=== PATIENT | male | born 1960 | race Caucasian/White ===

== ENCOUNTER 2023-09-12 09:05 | Emergency (ER) | payer OTHER, SELFPAY ==
[2023-09-12 09:07] VITALS: BP 170/98
[2023-09-12 10:31] VITALS: BMI 31.6
[2023-09-12] MEDS: TORADOL 15 MG IV (10:35)
[2023-09-12] MEDS: NSS 500 IV (10:36)
[2023-09-12 10:38] VITALS: BP 161/94
--- NOTE | 2023-09-12 10:38 | ED.GENMED ---
History of Present Illness
General
Chief Complaint: Abdominal Pain
Source: patient
Exam Limitations: none
Time Seen by Provider: 09/12/23 10:01
Travel History
Have you had any contact with someone who has COVID-19?: No
Do you have any symptoms of coronavirus? Fever > 100 degrees, chills, cough, shortness of breath, sore throat, loss of taste or smell, muscle aches, or headache?: No
History of Present Illness
History of Present Illness:
62-year-old male presents complaining of severe right mid abdominal and lower abdominal pain that radiates to the back comes in spasms. This has been intermittent since last month after he fell snowblowing's note. It worsened the last day or 2
with associated diaphoresis. 3 years ago he had hernia repair which included bilateral inguinal hernias and an umbilical hernia. Mesh was placed at the time. When he fell a month ago he felt a pop in the area. He denies any but is nauseous. He
is moving his bowels without any urinary symptoms. No other complaints at this time.
Past History
Past History
ED Past Medical History: HTN
ED Past Surgical History: Other (Left knee)
Social History
Tobacco: Non-smoker
Alcohol: Occasional
Drug: None
Personal:
Living: with family
Employment: Employed
Phy Exam
Physical Exam
Physical Exam:
General: Uncomfortable appearing male no acute respiratory distress
HEENT: Normocephalic atraumatic neck is supple
Heart: Regular rate and rhythm no murmurs lungs: Clear to auscultation bilaterally no wheezing
Abdomen is soft tender to the right inguinal region mildly to the right lateral abdomen. No testicular pain. No obvious bulging noted.
Vascular: The right inguinal region has 2+ femoral
Remedies: No cyanosis
Course
Orders/Labs/Results
Orders:
Orders
09/12/23 10:23
CT Abd/pelvis W Iv Cont Urgent
Comment:
Reason For Exam: right flankl/abdominal pain, history of hernia
09/12/23 10:24
0.9% Sodium Chloride 500 ml [Nss] 500 ml IV BOLUS
Ketorolac [Toradol] 15 mg IV NOW STA
09/12/23 10:36
Complete Blood Count/With Diff Urgent
Comprehensive Metabolic Panel Urgent
Lipase Urgent
09/12/23 13:30
Urinalysis Reflex To Culture Urgent
Date Specimen was Collected: 09/12/23
Time Specimen was Collected: 13:28
Urine Microscopic Reflex Cult Urgent
Urine Culture Urgent
ANABELLA Source: U
Specimen Description:
Date Specimen was Collected: 09/12/23
Time Specimen was Collected: 13:28
Abnormal Lab Results
09/12/23 09/12/23
10:36 13:30
MCH 31.5 H pg
(27.0-31.0)
Glucose 101 H mg/dl
(70-99)
Leukocyte Esterase Rfl 1+ A
(Negative)
09/12/23 10:36
09/12/23 10:36
Vital Signs
Initial and Last Documented VS:
Initial Vital Signs
Temp Pulse Resp BP Pulse Ox
98.3 F 77 18 170/98 98
09/12/23 09:07 09/12/23 09:07 09/12/23 09:07 09/12/23 09:07 09/12/23 09:07
Last Documented Vital Signs
Temp Pulse Resp BP Pulse Ox
98.3 F 65 20 156/96 96
09/12/23 09:07 09/12/23 12:52 09/12/23 12:52 09/12/23 12:52 09/12/23 12:52
MDM/Problems Addressed
Differential Diagnosis Includes:
Abdominal pain. Consider musculoskeletal versus renal colic versus recurrent hernia versus appendicitis
Will check labs. Will check urine. Order CT. Treat with Toradol and fluids
*Critical Care Note
Total Time (30-74mins, 75-104mins- exclusive of procedures): Not Applicable
Update Note
Update Note:
Workup here unremarkable. CT negative. Labs reviewed without significant finding. Urinalysis negative. Discussed findings with general surgery secondary to significant pain and similarity of pain to prior hernias. Will treat symptoms at home
and advise close follow-up. Surgery in agreement. No evidence of recurrence of hernia. Appendix was normal on CT. No skin rash to suggest shingles.
ED Attending Note
-
Portions of this chart may have been created with voice recognition software.� Occasional wrong word or��sound alike� substitutions may have occurred due to the inherent limitations of voice recognition software.
Discharge Plan
Departure
Patient Disposition: Home (Routine Discharge)
Date of Disposition: 09/12/23
Time of Disposition: 14:15
Patient with high blood pressure during this ER visit?: No
Discharge Problem:
Abdominal pain
Instructions: Abdominal Pain
Prescriptions:
New
cyclobenzaprine 10 mg tablet
10 mg PO TID PRN (Reason: muscle spasm) Qty: 10 0RF
No Action
Multivitamin
1 tab PO DAILY
red yeast rice 600 MG tablet
2 cap PO DAILY
hydrocodone-acetaminophen 1 TABLET tablet
1 - 2 tab PO Q4HPRN PRN (Reason: moderate to severe pain) Qty: 20 0RF
Referrals:
Igor Maya DO [Family Provider] -
Jorge Nowak MD [Active] -
Activity Restrictions/Additional Instructions:
Continue with Motrin 600 mg every 6 or 8 hours as needed for pain. Avoid heavy lifting or twisting. Return here for worsening pain fever or vomiting. Follow-up with general surgery otherwise
Interventions
Interventions:
*Risk Screen - Suicide Last Done: 09/12/23 10:57
*General Assessment Last Done: 09/12/23 10:31
*Neglect/Abuse Screening Last Done: 09/12/23 10:57
ED- Fall Risk Assessment Last Done: 09/12/23 10:57
*ED COVID-19 Vaccine History Last Done: 09/12/23 09:12
EA-Igsand-Vpipiolhge Assessment Last Done: 09/12/23 10:57
[2023-09-12 10:48] LABS: % Basophils 0.3 % (0-2); % Eosinophils 0.7 % (0-6); % Immature Granulocytes 0.3 % (0-0.5); % Lymphocytes 22.5 % (20.5-51.1); % Monocytes 9.1 % (1.7-9.3); % Neutrophils 67.1 % (42.2-75.2); Absolute Lymphocytes 1.3 10^3/uL (1.2-3.4); Absolute Monocytes 0.5 10^3/uL (0.1-0.6); Hematocrit 43.9 % (39.0-52.0); Hemoglobin 15.8 g/dL (13.0-18.0); Mean Corpuscular Hgb 31.5 pg (27.0-31.0); Mean Corpuscular Volume 87.6 fL (80.0-94.0); Mean Platelet Volume 9.1 fL (7.4-10.4); Nucleated Red Blood Cells % 0 % (-); Platelet Count 174 10^3/uL (130-400); Red Blood Cell Count 5.01 10^6/uL (4.70-6.10); Red Cell Dist. Width 13.1 % (11.5-14.5)
[2023-09-12 10:56] LABS: ALT (SGPT) 27 U/L (0-50); AST (SGOT) 26 U/L (17-59); Albumin 4.5 g/dl (3.5-5.0); Alkaline Phosphatase 57 U/L (38-126); Blood Urea Nitrogen 19 mg/dl (9-20); Calcium 9.3 mg/dl (8.4-10.2); Carbon Dioxide 25 mmol/L (22-30); Chloride 105 mmol/L (98-107); Estimated Creatinine Clearance 102 ml/min; Glucose 101 mg/dl (70-99); Lipase 133 U/L (23-300); Potassium 4.4 mmol/L (3.5-5.1); Sodium 136 mmol/L (135-145); Total Protein 7.6 g/dl (6.3-8.2); eGFR > 60.00
[2023-09-12 12:52] VITALS: BP 156/96
[2023-09-12 13:37] LABS: Urine Albumin Negative (Neg - Trace); Urine Bilirubin Negative (Negative); Urine Character Clear (Clear); Urine Color Yellow; Urine Glucose Negative (Negative); Urine Ketone Negative (Negative); Urine Leukocyte 1+ (Negative); Urine Nitrite Negative (Negative); Urine Occult Blood Negative (Negative); Urine Urobilinogen Negative (Neg - 1+)
[2023-09-12 14:01] LABS: Urine Red Blood Cell 0-2 /HPF (0-2); Urine White Cell 0-2 /HPF (0-5)
== END 2023-09-12 14:32 | disposition home or self-care (01) ==
LOC: EMR 09:05
PROVIDERS: Physician Assistant; EMERGENCY PHYSICIAN Emergency Medicine; FAMILY PHYSICIAN Family Medicine
DX: R10.30 Lower abdominal pain, unspecified (principal); R11.0 Nausea; R61 Generalized hyperhidrosis
CPT/HCPCS: 99285; 96374; 96361; 74177; 80053; 81003; 81015; 83690; 85025; 87086; Q9967

== ENCOUNTER 2023-09-13 08:56 | Emergency (ER) | payer OTHER, SELFPAY ==
[2023-09-13 09:10] VITALS: BP 172/94
--- NOTE | 2023-09-13 09:38 | ED.GENMED ---
History of Present Illness
General
Chief Complaint: Abdominal Pain
Time Seen by Provider: 09/13/23 09:38
Travel History
Have you had any contact with someone who has COVID-19?: No
Do you have any symptoms of coronavirus? Fever > 100 degrees, chills, cough, shortness of breath, sore throat, loss of taste or smell, muscle aches, or headache?: No
History of Present Illness
History of Present Illness:
HPI: The patient presents with right inguinal pain. This has been intermittently recurring over the past few years. He did have hernia surgery which seemed to help for a while but now pain has worsened. He was seen here yesterday with an
unremarkable ED workup including CT imaging of the abdomen pelvis with IV contrast. He did take Flexeril last night as well as Motrin seem to do okay overnight and slept well but then this morning pain worsened.
EXAM:
GENERAL: Well appearing in mild distress with attempted movement of the right
HEENT: Moist oral mucosa
CARDIOVASCULAR: No murmurs, normal heart rate, regular rhythm, No chest wall tenderness
PULMONARY: No respiratory distress, breath sounds are clear and equal
ABDOMEN: Soft with no peritoneal signs, no tenderness specifically no right lower quadrant tenderness, there is no palpable hernia
NEUROLOGIC: Excellent strength all extremities, no coordination deficits
PSYCHIATRIC: Appropriate mental status, normal insight and judgement
EXTREMITIES: The patient has minimal tenderness just inferior to the right inguinal crease, pain clearly worsens with active and passive flexion at the right hip
SKIN: No rash, no lesions
TIME OF INITIAL ENCOUNTER: 9:45 AM
NUMBER AND COMPLEXITY OF PROBLEMS ADDRESSED AT THE ENCOUNTER
� Chronic conditions affecting care: Has had hernia surgery in the past with Dr. Nowak
� Acute Exacerbation and/or Progression of Chronic Illness: This is a recurring problem
� Differential Diagnosis includes: Hip flexor strain, appendicitis very unlikely, muscle strain/tear
AMOUNT AND/OR COMPLEXITY OF DATA TO BE REVIEWED AND ANALYZED
� I performed an independent evaluation of and my interpretation is:
EKG:
CT: I personally viewed CT imaging of the abdomen pelvis with oral and IV contrast and see no clear abnormality to explain his symptoms
X-rays:
Laboratory Studies: White count again normal at 5.2, chemistries unremarkable
Other:
� Review of other/old records: I reviewed the notes from yesterday - CBC including white count normal, chemistries including lipase are normal, urinalysis shows 1+ leukocyte esterase but less than 2 white cells per high-power
field
� Clinical information was obtained by an independent historian: Spoke to family at bedside including [id number] who works here
� Prescriptions/Medications Considered but not given: Considered Valium prescription however patient already on Flexeril and seemed to tolerate it well last night
� Further testing considered but not performed:
RISK OF COMPLICATIONS AND/OR MORBIDITY OR MORTALITY OF PATIENT MANAGEMENT
� Social determinants of health affecting care: Lives at home
� Discussion with other providers: Discussed with Dr. Metzger but agrees with holding off on MRI at this time; I notified Dr. Nowak who strongly favors musculoskeletal etiology; I notified Dr. Peres who agrees with steroid use
� Escalation of care including admission/observation vs risk of discharge considered: Will repeat CT imaging this time with oral contrast. Favor more of a musculoskeletal etiology such as hip flexor strain. The patient was
given Toradol and a dose of Valium. Some improvement while in the ED. Will try steroids.
Past History
Past History
ED Past Medical History: HTN
ED Past Surgical History: Other (Left knee)
Social History
Tobacco: Non-smoker
Alcohol: Occasional
Drug: None
Personal:
Living: with family
Employment: Employed
Phy Exam
Physical Exam
Physical Exam:
See HPI
Course
Orders/Labs/Results
Orders:
Orders
09/13/23 09:52
CT Abd/pel W Iv And Oral Contr Urgent
Comment:
Reason For Exam: Pain at R groin worsening
0.9% Sodium Chloride 1000 ml [Nss] 1,000 ml IV BOLUS
Iohexol [Omnipaque] See Protocol PO NOW STA
Ketorolac [Toradol] 15 mg IV NOW STA
diazePAM [Valium Injection] 5 mg IV NOW STA
09/13/23 10:03
Complete Blood Count/With Diff Urgent
Comprehensive Metabolic Panel Urgent
09/13/23 14:25
Dexamethasone Sod Phosphate [Decadron] 6 mg IV NOW STA
Abnormal Lab Results
09/13/23
10:03
MCH 31.6 H pg
(27.0-31.0)
Chloride 109 H mmol/L
(98-107)
Glucose 106 H mg/dl
(70-99)
09/13/23 10:03
09/13/23 10:03
Vital Signs
Initial and Last Documented VS:
Initial Vital Signs
Temp Pulse Resp BP Pulse Ox
98.0 F 77 18 172/94 96
09/13/23 09:10 09/13/23 09:10 09/13/23 09:10 09/13/23 09:10 09/13/23 09:10
Last Documented Vital Signs
Temp Pulse Resp BP Pulse Ox
98.0 F 62 15 148/95 96
09/13/23 09:10 09/13/23 12:00 09/13/23 11:45 09/13/23 12:00 09/13/23 12:00
*Critical Care Note
Total Time (30-74mins, 75-104mins- exclusive of procedures): Not Applicable
ED Attending Note
-
Portions of this chart may have been created with voice recognition software.� Occasional wrong word or��sound alike� substitutions may have occurred due to the inherent limitations of voice recognition software.
Discharge Plan
Departure
Patient Disposition: Home (Routine Discharge)
Date of Disposition: 09/13/23
Time of Disposition: 14:32
Patient with high blood pressure during this ER visit?: Yes
Discharge Problem:
Strain of hip flexor
Prescriptions:
New
prednisone 50 mg tablet
50 mg PO DAILY Qty: 5 0RF
No Action
Multivitamin
1 tab PO DAILY
red yeast rice 600 MG tablet
2 cap PO DAILY
hydrocodone-acetaminophen 1 TABLET tablet
1 - 2 tab PO Q4HPRN PRN (Reason: moderate to severe pain) Qty: 20 0RF
cyclobenzaprine 10 mg tablet
10 mg PO TID PRN (Reason: muscle spasm) Qty: 10 0RF
Referrals:
Igor Maya DO [Family Provider] -
Jorge Nowak MD [Active] - Follow up in 2-3 days
Dann Peres MD [Active] - Follow up in 2-3 days
Activity Restrictions/Additional Instructions:
I discussed findings with Dr. Nowak and then I also notify Dr. Peres. Dr. Peres recommends steroids. I sent this to your pharmacy. Be given IV dose of steroids today. He also given IV dose of Toradol and Valium. Continue Flexeril. Return
here if worse.
Interventions
Interventions:
*Risk Screen - Suicide Last Done: 09/13/23 09:43
*General Assessment Last Done: 09/13/23 10:49
*Neglect/Abuse Screening Last Done: 09/13/23 09:43
ED- Fall Risk Assessment Last Done: 09/13/23 09:43
*ED COVID-19 Vaccine History Last Done: 09/13/23 09:10
PN-Waryim-Semwtavkdr Assessment Last Done: 09/13/23 09:38
[2023-09-13 09:40] VITALS: BMI 31.7
[2023-09-13 09:48] VITALS: BP 157/89
[2023-09-13 10:00] VITALS: BP 161/87
[2023-09-13] MEDS: VALIUM INJECTION 5 MG IV (10:01)
[2023-09-13] MEDS: OMNIPAQUE 50 ML PO (10:01)
[2023-09-13] MEDS: TORADOL 15 MG IV (10:01)
[2023-09-13] MEDS: NSS 1000 IV (10:02)
[2023-09-13 10:25] LABS: % Basophils 0.6 % (0-2); % Eosinophils 1.5 % (0-6); % Immature Granulocytes 0.2 % (0-0.5); % Lymphocytes 24.7 % (20.5-51.1); Absolute Eosinophils 0.1 10^3/uL (0-0.7); Absolute Lymphocytes 1.3 10^3/uL (1.2-3.4); Absolute Monocytes 0.5 10^3/uL (0.1-0.6); Absolute Neutrophils 3.4 10^3/uL (1.4-6.5); Hematocrit 42.2 % (39.0-52.0); Hemoglobin 15.1 g/dL (13.0-18.0); Mean Corp Hgb Conc. 35.8 g/dL (33.0-37.0); Mean Corpuscular Hgb 31.6 pg (27.0-31.0); Mean Corpuscular Volume 88.3 fL (80.0-94.0); Mean Platelet Volume 9.1 fL (7.4-10.4); Nucleated Red Blood Cells % 0 % (-); Platelet Count 162 10^3/uL (130-400); Red Blood Cell Count 4.78 10^6/uL (4.70-6.10); White Blood Cell Count 5.2 10^3/uL (4.8-10.8)
[2023-09-13 10:34] LABS: ALT (SGPT) 22 U/L (0-50); AST (SGOT) 21 U/L (17-59); Alkaline Phosphatase 62 U/L (38-126); Blood Urea Nitrogen 18 mg/dl (9-20); Carbon Dioxide 23 mmol/L (22-30); Chloride 109 mmol/L (98-107); Estimated Creatinine Clearance 98 ml/min; Glucose 106 mg/dl (70-99); Potassium 4.7 mmol/L (3.5-5.1); Sodium 138 mmol/L (135-145); Total Bilirubin 0.5 mg/dl (0.2-1.3); eGFR > 60.00
[2023-09-13 11:00] VITALS: BP 149/81
[2023-09-13 12:00] VITALS: BP 148/95
[2023-09-13 14:32] VITALS: BP 147/102
[2023-09-13] MEDS: DECADRON 6 MG IV (14:33)
== END 2023-09-13 15:08 | disposition home or self-care (01) ==
LOC: EMR 08:56
PROVIDERS: EMERGENCY PHYSICIAN Emergency Medicine; FAMILY PHYSICIAN Family Medicine
DX: S76.011A Strain of muscle, fascia and tendon of right hip, initial encounter (principal); X58.XXXA Exposure to other specified factors, initial encounter; I10 Essential (primary) hypertension
CPT/HCPCS: 99285; 74177; 80053; 85025; Q9967

== ENCOUNTER → 2023-09-16 09:27 | Outpatient (REF) | payer OTHER, SELFPAY | LOC: RAD 09:27 | PROVIDERS: ATTENDING PHYSICIAN Family Medicine | DX: M25.551 Pain in right hip (principal); M54.50 Low back pain, unspecified | CPT/HCPCS: 72110; 73502 ==

== ENCOUNTER 2024-05-19 06:21 | Day surgery (SDC) | payer OTHER, SELFPAY | END 2024-05-19 14:12 | disposition home or self-care (01) | LOC: GI 06:21 | PROVIDERS: ATTENDING PHYSICIAN Internal Medicine Gastroenterology | DX: Z09 Encounter for follow-up examination after completed treatment for conditions other than malignant neoplasm (principal); Z83.719 Family history of colon polyps, unspecified; K57.30 Diverticulosis of large intestine without perforation or abscess without bleeding; K64.8 Other hemorrhoids; R12 Heartburn; K22.89 Other specified disease of esophagus; K31.89 Other diseases of stomach and duodenum; Z13.810 Encounter for screening for upper gastrointestinal disorder | CPT/HCPCS: 45378; 43239; 88305; 88342 ==